=== PATIENT | female | born 1960 ===

== ENCOUNTER 2025-04-04 11:00 | Outpatient (AMB) | payer OTHER, SELFPAY ==
--- NOTE | 2025-04-04 11:14 | MHC.OFFVIS ---
Intake Visit Reasons: 6m Allergies sulfadiazine Allergy (Unknown, Verified 04/04/25 11:19) Unknown Medication List - Last Reconciled 04/04/25 by Flower Townsend CNP levothyroxine (Levoxyl) 125 mcg PO QAM omeprazole 20 mg PO DAILY rimegepant (Nurtec ODT) 75 mg PO Q OTHER DAY zolpidem 5 mg PO BEDTIME HPI Comments Details: She was doing okay. Migraines were okay with Nurtec every other day, gets about 1/week. Has more migraines during the summer, triggered by heat and humidity. Sleep was okay. She was using zolpidem about 2-3 days/week, and using melatonin or ZzzQuil other nights as needed. No medication side effects. Sleeping about 7 hours/night. Doxepin was not covered by insurance. Amitriptyline did not help and had bad dreams and more headaches with medication.? Previously, migraines were?about 2 migraines/month. Nurtec as needed helped if she took medication right away. Sometimes, she woke up with migraine and medication did not seem to help. Triggers for migraine included lack of sleep. Sleep was not so good. She had trouble falling asleep and staying asleep. Sometimes, she tries melatonin or Unisom. She tried trazodone in the past, but it did not help. Works in dermatology office. Migraine-type headaches since 2010. Has trouble falling asleep and staying asleep. Triggers include stress, hormonal fluctuations, wine, and weather changes. She is a [employer]. There is no aura. She gets nausea, photophobia, sonophobia, and smells bother her. Naratriptan helped somewhat. In the past, she tried sumatriptan and Zomig pills and nasal spray which seemed to have worked the past. She was under the care of [facility] neurology and tried Botox, Aimovig, and topiramate. In the past, she tried gabapentin, propranolol, amitriptyline, and topiramate which helped but caused hair loss. She was also on Botox which helped, but at one time she had some twitching so she did not take it after that. No family history of migraine. [facility] Medical History (Updated 04/04/25 @ 11:17 by Flower Townsend CNP) Hypothyroidism Insomnia Migraine Review of Systems Const Denies chills, Denies daytime sleepiness, Denies difficulty sleeping, Denies fatigue, Denies fever(s), Denies frequent falls, Reports headache(s), Denies increased appetite, Denies poor appetite, Denies snoring, Denies weakness, Denies weight gain and Denies weight loss Eyes Denies loss of vision ENT Denies vertigo, Denies dizziness, Reports headache(s) and Denies neck pain Card Denies chest pain at rest, Denies chest pain with activity, Denies syncope, Denies leg edema, Denies palpitations, Denies dyspnea and Denies dyspnea on exertion Resp Denies cough, Denies dyspnea, Denies dyspnea on exertion and Denies snoring GI Denies abdominal pain, Denies constipation, Denies heartburn, Denies diarrhea and Denies nausea Denies urinary frequency, Denies urinary incontinence and Denies urinary urgency Musc Denies abnormal gait, Denies back pain, Denies myalgias, Denies arthralgias, Denies neck pain, Denies numbness and Denies tingling Neuro Denies abnormal gait, Denies vertigo, Denies dizziness, Denies syncope, Denies frequent falls, Reports headache(s), Denies lack of coordination, Denies loss of vision, Denies memory loss, Denies numbness, Denies Other visual disturbances, Denies restless legs, Denies seizure-like activity, Denies tingling, Denies paresthesias, Denies tremor(s) and Denies weakness Psych Denies anxiety, Denies depression, Denies auditory hallucinations, Denies memory loss and Denies visual hallucinations Endo Denies fatigue and Denies palpitations Physical Exam Const Other: General Appearance:? normal, in no acute distress. Heart:? S1, S2 normal, no murmurs. Lungs:? clear anteriorly and posteriorly. Musculoskeletal:? normal. Extremities:? no edema. Psych:? alert, oriented, cognitive function intact, cooperative with exam. Neuro Other: Abnormal Neurological Findings:?none.? Mental Status: alert and oriented X 3. Normal attention, orientation, memory, and affect. Cranial Nerves: Pupils are equal, round, and reactive to light. External ocular muscles are intact. Visual hood are full, no ptosis. Face is symmetrical, no facial weakness or droop. Facial sensations are normal. Tongue protrudes in midline. Palate elevates symmetrically. Shoulder shrugging is normal Motor Examination: Normal muscle tone, bulk and strength. No atrophy or fasciculations. No drift of the extended upper extremities. DTR 2+. Plantars are flexor. Sensory Exam: Normal light touch, temperature, pinprick, vibration, and joint-position sensations. Rhomberg sign is absent. Coordination: No ataxia. No titubation. Gait Exam: Within normal limits. Cerebellar Signs: Vyptie-[id number] is okay. Extrapyramidal System: No tremor, rigidity with normal facial expressions. No bradykinesia. No bradyphrenia. Normal arm swing and posture. No propulsion or retropulsion. Speech: Normal. Assessment & Plan Assessment & Plan (1) Chronic migraine w/o aura w/o status migrainosus, not intractable: Code(s): G43.709 - Chronic migraine without aura, not intractable, without status migrainosus Category: Medical Plan: Continue Nurtec 75mg 1 tablet every other day #15 for 30 days. (2) Insomnia: Code(s): G47.00 - Insomnia, unspecified Category: Medical Qualifiers: Insomnia type: unspecified Qualified Code(s): G47.00 - Insomnia, unspecified Plan: Continue zolpidem 5mg 1 tablet at bedtime as needed for sleep #30 for 30 days. Plan Meds tried for sleep: amitriptyline, trazodone Meds tried for migraine: naratriptan, sumatriptan, Zomig (pills and nasal spray), gabapentin, propranolol, amitriptyline, topiramate (helped, but caused hair loss), Aimovig, Botox Medications: New zolpidem 5 mg PO BEDTIME 30 tabs 3RF 30 days Coding Level of Care Code Est Pt Level 4 (93454) Diagnoses Chronic migraine w/o aura w/o status migrainosus, not intractable G43.709 Insomnia, unspecified type G47.00 Insomnia type: unspecified
--- OUTSIDE RECORDS SUMMARY | 2025-04-04 16:52 | XMS_ITS | Patient Health Record ---
Author Organization [facility] Address [address] [address] Care Team Providers Care Supervisor [employer] Name Role Phone EVANGELISTA MAGANA Primary Care Provider EMILEE Butler Unavailable [phone] Allergies Allergen (clinical drug ingredient) Drug/Non Drug Allergy documented on EMR Reaction Allergy Type Onset Date Status Levaquin nausea Drug Allergy Active sulfa rash Drug Allergy Active Reason For Referral No Information Medications Medication SIG (Take, Route, Frequency, Duration) Notes Start Date End Date Status Magnesium Oxide 400 MG 1 tablet Orally B ID; Duration: 30 day(s) Active Zofran 4 MG 1 tablets Orally q4h our prn nausea; Duration: 30 day(s) Active Promethazine HCl 12.5 MG 1 tablet daily Orally As needed; Duration: 30 days Active Eletriptan Hydrobromide 20 MG 1 tablet as needed one time at onset of migraine, may repeat x 1; limit to 2/wk Orally Once a day; Duration: 30 days Active Naratriptan HCl 2.5 MG TAKE 1 TABLET BY MOUTH NEEDED ONCE A DAY DIRECTED (LIMIT TO 2 TABS/WEEK); Duration: 30 Active lamoTRIgine 25 MG 1 tablet Orally BID; Duration: 30 Active Estradiol 0.05 MG/24HR Transdermal Active Zembrace SymTouch 3 MG/0.5ML 0.5 ml as needed one time Subcutaneous Once a day as needed for severe migraine; Duration: 30 days Active Levoxyl 150 MCG 1 tablet Orally Active Promethazine HCl 12.5 MG TAKE 1 TABLET B Y MOUTH DAILY NEEDED; Duration: 30 Active Botox 200 UNIT inject 155 units div ided into 31 sites around the head and neck IM every 12 weeks; Duration: 90 days 08/19/2015 Active Problems Problem Type SNOMED Code ICD Code Onset Dates Problem Status W/U Status Risk Notes Problem Headache (26993983) Headache (784.0) Active confirmed Problem Hypothyroidism (44967857) Hypothyroidism, unspecified (E03.9) Active confirmed Problem Major depression, single episode (60883408) Major depressive disorder, single episode, unspecified (F32.9) Active confirmed Problem Chronic intractable migraine without aura (119752686359327) Chronic migraine without aura, intractable, without status migrainosus (G43.719) Active confirmed Problem Nausea (186929382) Nausea (R11.0) Active confirmed Problem Depression (259326132) Depression (F32.9) Active confirmed Problem Dizziness (050675532) Dizziness (R42) Active confirmed Problem Restless legs syndrome (34583483) Restless leg syndrome (G25.81) Active confirmed Problem Abnormal gait (72851695) Imbalance (R26.89) Active confirmed Problem Hypothyroidism (98598530) Hypothyroidism (E03.9) Active confirmed Problem Malaise (312196389) Malaise (R53.81) Active confirmed Plan Of Treatment Pending Test Test Name Order Date LIPID PANEL WITH REFLEX TO DIRECT LDL COMPREHENSIVE METABOLIC PANEL 03/14/2018 LYME DISEASE AB W/REFL TO BLOT (IGG, IGM ) 03/14/2018 HEMOGLOBIN A1c 03/14/2018 TSH W/REFLEX TO FT4 03/14/2018 LAMOTRIGINE 03/14/2018 Insurance Providers Payer Name Payer Address Payer Phone Subscriber Number Group Number Insured Name Patient Relationship to Insured Coverage Start Date Coverage End Date [facility] [address] [place] [address] [id number] OZZIE CLINTON Self - patient is the insured Medications Administered Medication Instructions Date of Administration Dosage Notes Botox 09/18/2015 155 units INFORMED CONSENT: The rationale, risks, benefits, and alternatives of Botox injection for headaches were reviewed with the patient. All questions answered, consent was given, and she decided to proceed with the injections. PROCEDURAL PAUSE: Prior to starting the procedure, all pertinent records were reviewed, the nature of the procedure was explained, and a pre-procedure pause was performed. Procedural pause conducted to verify: correct patient identity, procedure to be performed, correct patient position, special requirements, and as applicable, correct side and site. PROCEDURE DETAILS: Botulinum toxin injection 155 units of botulinum toxin type A were injected into the following muscles: 1. 5.0 units into each emblem maker muscle and into the procerus muscle (15 units total). 2. 10 units into the right and left superior frontalis muscle (20 units total). 3. 20 units into the right and left temporalis muscle (40 units total). 4. 15 units into the right and left occipitalis muscle (30 units total). 5. 10 units into the right and left splenius capitis muscle (20 units total). 6. 15 units into the right and left trapezius muscle (30 units total). 45 units were wasted. The patient tolerated the procedure well. Botox 12/11/2015 155 units INFORMED CONSENT: The rationale, risks, benefits, and alternatives of Botox injection for headaches were reviewed with the patient. All questions answered, consent was given, and she decided to proceed with the injections. PROCEDURAL PAUSE: Prior to starting the procedure, all pertinent records were reviewed, the nature of the procedure was explained, and a pre-procedure pause was performed. Procedural pause conducted to verify: correct patient identity, procedure to be performed, correct patient position, special requirements, and as applicable, correct side and site. PROCEDURE DETAILS: Botulinum toxin injection 155 units of botulinum toxin type A were injected into the following muscles: 1. 5.0 units into each emblem maker muscle and into the procerus muscle (15 units total). 2. 10 units into the right and left superior frontalis muscle (20 units total). 3. 20 units into the right and left temporalis muscle (40 units total). 4. 15 units into the right and left occipitalis muscle (30 units total). 5. 10 units into the right and left splenius capitis muscle (20 units total). 6. 15 units into the right and left trapezius muscle (30 units total). 45 units were wasted. The patient tolerated the procedure well. [id number] may 2018 Botox 03/04/2016 155 units INFORMED CONSENT: The rationale, risks, benefits, and alternatives of Botox injection for headaches were reviewed with the patient. All questions answered, consent was given, and she decided to proceed with the injections. PROCEDURAL PAUSE: Prior to starting the procedure, all pertinent records were reviewed, the nature of the procedure was explained, and a pre-procedure pause was performed. Procedural pause conducted to verify: correct patient identity, procedure to be performed, correct patient position, special requirements, and as applicable, correct side and site. PROCEDURE DETAILS: Botulinum toxin injection 155 units of botulinum toxin type A were injected into the following muscles: 1. 5.0 units into each emblem maker muscle and into the procerus muscle (15 units total). 2. 10 units into the right and left superior frontalis muscle (20 units total). 3. 20 units into the right and left temporalis muscle (40 units total). 4. 15 units into the right and left occipitalis muscle (30 units total). 5. 10 units into the right and left splenius capitis muscle (20 units total). 6. 15 units into the right and left trapezius muscle (30 units total). 45 units were wasted. The patient tolerated the procedure well. [id number] Aug 2018 Botox 05/27/2016 155 units INFORMED CONSENT: The rationale, risks, benefits, and alternatives of Botox injection for headaches were reviewed with the patient. All questions answered, consent was given, and she decided to proceed with the injections. PROCEDURAL PAUSE: Prior to starting the procedure, all pertinent records were reviewed, the nature of the procedure was explained, and a pre-procedure pause was performed. Procedural pause conducted to verify: correct patient identity, procedure to be performed, correct patient position, special requirements, and as applicable, correct side and site. PROCEDURE DETAILS: Botulinum toxin injection 155 units of botulinum toxin type A were injected into the following muscles: 1. 5.0 units into each emblem maker muscle and into the procerus muscle (15 units total). 2. 10 units into the right and left superior frontalis muscle (20 units total). 3. 20 units into the right and left temporalis muscle (40 units total). 4. 15 units into the right and left occipitalis muscle (30 units total). 5. 10 units into the right and left splenius capitis muscle (20 units total). 6. 15 units into the right and left trapezius muscle (30 units total). 45 units were wasted. The patient tolerated the procedure well. [id number] Dec 2018 Botox 08/26/2016 155 units PROCEDURAL PAUSE: Prior to starting the procedure, all pertinent records were reviewed, the nature of the procedure was explained, and a pre-procedure pause was performed. Procedural pause conducted to verify: correct patient identity, procedure to be performed, correct patient position, special requirements, and as applicable, correct side and site. PROCEDURE DETAILS: Botulinum toxin injection 155 units of botulinum toxin type A were injected into the following muscles: 1. 5.0 units into each emblem maker muscle and into the procerus muscle (15 units total). 2. 10 units into the right and left superior frontalis muscle (20 units total). 3. 20 units into the right and left temporalis muscle (40 units total). 4. 15 units into the right and left occipitalis muscle (30 units total). 5. 10 units into the right and left splenius capitis muscle (20 units total). 6. 15 units into the right and left trapezius muscle (30 units total). 45 units were wasted. The patient tolerated the procedure well. [id number] Feb 2019 Botox 11/25/2016 155 units PROCEDURE DETAILS: Botulinum toxin injection 155 units of botulinum toxin type A were injected into the following muscles: 1. 5.0 units into each emblem maker muscle and into the procerus muscle (15 units total). 2. 10 units into the right and left superior frontalis muscle (20 units total). 3. 20 units into the right and left temporalis muscle (40 units total). 4. 15 units into the right and left occipitalis muscle (30 units total). 5. 10 units into the right and left splenius capitis muscle (20 units total). 6. 15 units into the right and left trapezius muscle (30 units total). 45 units were wasted. The patient tolerated the procedure well. [id number] may 2019 Medical (General) History Medical History History ICD Code Hypothyroidism, unspecified Headache Major depressive disorder, single episod e, unspecified Surgical History Surgery Date(Month/Year) Tonsilectomy 1991 Tubal ligation 1994 Hyst partial 1999 s/p thyroid nodule bx Hospitalization History Reason Date(Month/Year) surgical related
--- OUTSIDE RECORDS SUMMARY | 2025-04-04 16:53 | XMS_ITS | Clinical Summary ---
Author Organization [facility] Address [address] [address] Phone Care Team Providers Care Consumer Affairs Director Name Role Phone Mauri Alva MD Primary Care Provider Allergies Active Allergy Reactions Criticality Noted Date Comments Levofloxacin 11/02/2022 rash Sulfa (Sulfonamide Antibiotics) 10/15 Medications LEVOXYL 150 mcg tablet TAKE ONE TABLET BY MOUTH EVERY DAY SIX DAYS A WEEK AND TAKE 1 AND 1/2 TABLET ON SEVENTH DAY 09/21/2022 Active NURTEC ODT 75 mg tablet TAKE 1 TABLET ON THE TONGUE AND ALLOW TO DISSOLVE ORALLY EVERY OTHER DAY 10/06/2022 Active Social History Tobacco Use Types Packs/Day Years Used Date Smoking Tobacco: Never Smokeless Tobacco: Never Alcohol Use Standard Drinks/Week Comments Yes 0 (1 standard drink = 0.6 oz pur e alcohol) 2-3 weekly Education Answer Date Recorded Are you interested in more education? Not on akira e 09/11/2022 Are you concerned about learning? Not on file 09/11/2022 No 09/11/2022 No 09/11/2022 Digital Access Answer Date Recorded No 10/12/2022 No 10/12/2022 Reliable internet access at home? Not on file 10/12/2022 Device with a working camera? Not on file Intimate Partner Violence Answer Date R ecorded Denied Basic Needs Not on file 11/03/2022 In the past 12 months have y ou been in a relationship with a person who hurts, threatens, or tries to control you? No 11/03/2022 Worried food would run out Not on file 11/03 In the past 12 months have y ou been in a relationship with a person who hurts, threatens, or tries to control you? No 11/03/2022 Comments No Sex and Gender Information Value Date Recorded Sex Assigned at Not on file Legal Sex Female 11:52 AM EST Gender Identity Not on file Sexual Orientation Not on file Last Filed Vital Signs Vital Sign Reading Time Taken Comments Blood Pressure 122/73 11/03/2022 12:41 PM EDT Pulse 67 11/03/2022 12:41 PM EDT Temperature 36 C (96.8 F) 11/03/2022 12:26 PM EDT Respiratory Rate 16 11/03/2022 12:45 PM EDT Oxygen Saturation 97% 11/03/2022 12:41 PM EDT Inhaled Oxygen Concentration - - Weight 72.1 kg (159 lb) 11/02/2022 2:21 PM EDT Height 162.6 cm (5' 4 ) 11/02/2022 2:21 PM EDT Body Mass Index 27.29 11/02/2022 2:21 PM EDT Plan of Treatment Health Maintenance Due Date Last Done Comments Adult Td,Tdap Booster 1960 LIPID PANEL 1960 TSH LEVEL 1960 DEPRESSION SCREENING 1974 HEPATITIS C SCREENING 01/17/1980 HIV ONE-TIME SCREENING (18-6 5 YEARS) 01/17/1980 PAP SMEAR 1983 SCREENING FOR DIABETES 1997 MAMMOGRAM 2002 COLOGUARD 2007 FIT TEST 2007 FOBT 2007 SIGMOIDOSCOPY 2007 VIRTUAL COLONOSCOPY 2007 PNEUMOCOCCAL VACCINES (50+ years) (1 of 1 - PCV) 01/17/2012 ZOSTER VACCINES (1 of 2) 01/17/2012 INFLUENZA VACCINE (#1) 2024 COVID-19 VACCINE (4 - 2024-2 6 season) 2025 05/14/2021, 07/04/2020, 06/06/2020 COLONOSCOPY 11/03/2032 11/03/2022 COLORECTAL CANCER SCREENING 11/03/2032 RSV VACCINE (1 - 1-dose 75+ series) 2037 SMOKING STATUS SCREENING (On ce After 26 Yrs) Completed 11/03/2022 HEPATITIS A VACCINES Aged Out No long er eligible based on patient's age to complete this topic HIB VACCINES Aged Out No longer eligi ble based on patient's age to complete this topic MENINGOCOCCAL VACCINES (ACWY) Aged Out No longer eligible based on patient's age to complete this topic MENINGOCOCCAL VACCINES (B) Aged Out N o longer eligible based on patient's age to complete this topic Medical Devices Not on file Procedures Procedure Name Priority Date/Time Associated Diagnosis Comments ENDOSCOPY, COLON 11/03/2022 12:0 4 PM EDT from Last 3 Months or Most Recently Relevant to Health Maintenance Results * ENDOSCOPY, COLON (11/03/2022 12:04 PM EDT) Narrative Transcriptions Catia Nunn MD - 11/03/2022 12:04 PM EDT [facility] Patient Name: Joan Moreno Attending MD:: CATIA NUNN MD, Procedure Date: 11/03/2022 12:04 PM Date of : 1960 Age: 62 Admit Type: Outpatient Gender: Female Room: [place] [address] Referring MD: Mauri Alva MD Exam Type: Colonoscopy Indications: Screening for colorectal malignant neoplasm, Last colonoscopy 10 years ago Medications: Monitored Anesthesia Care Procedure: Informed consent was obtained from the patientafter discussion of the indications, limitations, alternatives, benefits, and risks of the procedure. Risks specifically discussed include but are not limited to medication reactions, missed lesions, bleeding, perforation, or the need for emergent surgery. Throughout the procedure, the patient's blood pressure, pulse, end-tidal CO2, and oxygensaturations were monitored continuously. The Olympus pediatric variable colonoscopePCF-[id number] #2 was introduced through the anus and advanced tothe terminal ileum, with identification of theappendiceal orifice and IC valve. The colonoscopy was performed without difficulty. The patient tolerated the procedure fairly well. The quality of the bowel preparation was good. The terminal ileum, ileocecal valve, appendiceal orifice, and rectum were photographed. Complications: No immediate complications. Estimated blood loss:None. Findings: The perianal and digital rectal examinations were normal. Pertinent negatives include normalsphincter tone. Retroflexion in the right colon was performed. The terminal ileum appeared normal. Non-bleeding internal hemorrhoids were found during retroflexion. The hemorrhoids were moderate. The exam was otherwise without abnormality ondirect and retroflexion views. Impression: - The examined portion of the ileum was normal. - Non-bleeding internal hemorrhoids. - The examination was otherwise normal on directand retroflexion views. - No specimens collected. Recommendation: - Repeat colonoscopy in 10 years for screening purposes. - Continue present medications. - Patient has a contact number available for emergencies. The signs and symptoms of potential delayed complications were discussed with thepatient. Return to normal activities tomorrow. Written discharge instructions were provided to thepatient. CATIA NUNN MD 11/03/2022 12:26:06 PM This report has been signed electronically. Number of Addenda: 0 Note Initiated On: 11/03/2022 12:04 PM Procedure Code(s): --- Professional --- 10557, Colonoscopy, flexible; diagnostic, including collection of specimen(s) by brushing or washing, when performed (separateprocedure) --- Technical --- 79967, Colonoscopy, flexible; diagnostic, including collection of specimen(s) by brushing or washing, when performed (separateprocedure) Diagnosis Code(s): --- Professional --- Z12.11, Encounter for screening for malignantneoplasm of colon K64.8, Other hemorrhoids --- Technical --- Z12.11, Encounter for screening for malignantneoplasm of colon K64.8, Other hemorrhoids CPT copyright 2021 [employer]. All rights reserved. The codes documented in this report are preliminary and upon store host reviewmay be revised to meet current compliance requirements. Procedure Date: 11/03/2022 12:04:40 PM [address] [place] [address] Mauri Alva MD GI PROCEDURE ORDERABLES Final Result from Last 3 Months or Most Recently Relevant to Health Maintenance Insurance [facility] Care Teams Consumer Affairs Director Relationship Specialty Start Date End Date Mauri Alva MD [address] [place] [id number] PCP - General Internal Medicine 11/03/22 Additional Source Comments The information contained in this document represents components of the legal health record. It is not the complete legal health record.[facility]
--- OUTSIDE RECORDS SUMMARY | 2025-04-04 16:54 | XMS_ITS | Patient Health Record ---
[facility] Address [address] [place] [address] Care Team Providers Care Training And Documentation Specialist Name Role Phone Mauri Smalls MD Primary Care Provider Unavailab ashley SrivastavaElsie Unavailable [phone] Allergies Allergen (clinical drug ingredient) Drug/Non Drug Allergy documented on EMR Reaction Allergy Type Onset Date Status sulfa rash Drug Allergy Active levaquin nausea and vomiting Drug Allergy Active Reason For Referral No Information Medications Medication SIG (Take, Route, Fr equency, Duration) Notes Start Date End Date Status Work Note . . . .; Duration: . 09/21/2011 Active Levoxyl .02 MG 1 tablet every morni ng on an empty stomach Orally Once a day; Duration: 30 day(s) Active Topamax 25 MG 1 tablet at bedtime Orally Once a day; Duration: 30 day(s) Active Zomig Active Problems Problem Type SNOMED Code ICD Code Onset Dates Problem Status W/U Status Risk Notes Problem Hallux valgus (673096488) Hallux Valgus (735.0) Active confirmed Problem Hammer toe (503395020) Hammer toe (735.4) Active confirmed Problem Metatarsalgia (32837722) Metatarsalgia (726.70) Active confirmed Problem Pain in limb (55041332) Pain in Limb (729.5) Active confirmed Plan Of Treatment Pending Test Test Name Order Date X ray : Foot, left 3V 09/21/2011 X ray : Foot, right 3V 09/21/2011 Insurance Providers Payer Name Payer Address Payer Phone Subscriber Number Group Number Insured Name Patient Relationship to Insured Coverage Start Date Coverage End Date [facility] [address] [place] [id number] Joan Moreno Self - patient is the insured Medical (General) History Medical History History ICD Code headaches/migraines thyroid disorder chicken pox Surgical History Surgery Date(Month/Year) cyst removal 2002 hernia 2006
--- OUTSIDE RECORDS SUMMARY | 2025-04-04 16:55 | XMS_ITS | Clinical Summary ---
Author Organization [facility] Address [address] [place] [address] Phone Care Team Providers Care Unit Control Worker Name Role Phone Mauri Paris MD Primary Care Provider [phone] Encounters Date Type Department Care Team Description 03/21/2025 9:54 AM EST - 03/21/2025 11:59 PM EST Hospital [facility]counter [facility] [address] [address] Visit for screening mammogram Discharge Disposition: Home or Self Care from Last 3 Months Surgical History Surgery Date Site/Laterality Comments STEREOTACTIC CORE BIOPSY HYSTERECTOMY Social History Tobacco Use Types Packs/Day Years Used Date Smoking Tobacco: Never Assessed Comments No Sex and Gender Information Value Date Recorded Sex Assigned at Not on file Legal Sex Female 1:54 AM EST Gender Identity Not on file Sexual Orientation Not on file Obstetrics History Para Term AB IAB SAB Ectopic Multiple Livin g Live Births 3 Last Filed Vital Signs Vital Sign Reading Time Taken Comments Blood Pressure - - Pulse - - Temperature - - Respiratory Rate - - Oxygen Saturation - - Inhaled Oxygen Concentration - - Weight 71.7 kg (158 lb) 03/21/2025 10:03 AM EST Height 162.6 cm (5' 4 ) 03/21/2025 10:03 AM EST Body Mass Index 27.12 03/21/2025 10:03 AM EST Plan of Treatment Upcoming Encounters Date Type Department Care Team (Late st Contact Info) Description 05/23/2025 10:00 AM EST Appointment [facility] Bone Density [address] [place] [address] Health Maintenance Due Date Last Done Comments Colorectal Cancer Screening: Colonoscopy 1962 DTaP,Tdap,and Td Vaccines (1 - Tdap) 1981 Cervical Cancer Screening: Pap Smear 1983 Pneumococcal Vaccine: 50+ Years (1 of 1 - PCV) 01/17/2012 Zoster Vaccines (1 of 2) 01/17/2012 HIV Screening 04/18/2022 Hepatitis C Screening 04/18/2022 Social Influencers of Health Screening 04/18/2022 Depression Screening 05/16/2024 COVID-19 Vaccine ( season) 2025 05/14/2021, 07/04/2020, 06/06/2020 Influenza Vaccine (#1) 2025 Breast Cancer Screening 03/21/2027 03/21/20, 12/01/2023, 10/13/2022, Additional history exists RSV Immunization Adult Patients (1 - 1-dose 75+ series) 2037 HIB Vaccines Aged Out No longer eligi ble based on patient's age to complete this topic HPV Vaccines Aged Out No longer eligi ble based on patient's age to complete this topic Hepatitis A Vaccines Aged Out No long er eligible based on patient's age to complete this topic Hepatitis B Vaccines Aged Out No long er eligible based on patient's age to complete this topic IPV Vaccines Aged Out No longer eligi ble based on patient's age to complete this topic MMR Vaccines Aged Out No longer eligi ble based on patient's age to complete this topic Meningococcal ACWY Vaccine Aged Out N o longer eligible based on patient's age to complete this topic Meningococcal B Vaccine Aged Out No l onger eligible based on patient's age to complete this topic RSV Immunization Patients Under 20 months Aged Out No longer eligible based on patient's age to complete this topic Varicella Vaccines Aged Out No longer eligible based on patient's age to complete this topic Procedures Procedure Name Priority Date/Time Associated Diagnosis Comments MG MAMMO DIGITAL SCREENING W AR BILAT Routine 03/21/2025 10:11 AM EST Visit for screening mammogram from Last 3 Months Results * MG Mammo Digital Screening w Ar bilat (03/21/2025 10:11 AM EST) Anatomical Region Laterality Modality Breast Bilateral Mammography 03/21/2025 10:2 7 AM EST Impressions 03/21/2025 11:33 AM EST Benign. BI-RADS CATEGORY: 1 - NEGATIVE RECOMMENDATION: Screening bilateral mammogram is recommended in 1 year. Mammo Location: [facility], [address] [place] [address], [id number], . -------- FINAL REPORT -------- Dictated By: Samir Lara Dictated Date: 03/21/2025 10:27 ET Assigned Physician: Samir Lara Reviewed and Electronically Signed By: Samir Lara Signed Date: 03/21/2025 11:33 ET Workstation ID: [id number] Transcribed By: Self Edit Transcribed Date: 03/21/2025 10:28 ET Narrative 03/21/2025 11:33 AM EST CLINICAL: 65 years old, Female, routine annual exam. COMPARISON: 12/01/2023 and 10/13/2022 TECHNIQUE: Bilateral MLO and CC views were obtained digitally with 3-D mammogram (digital breast tomosynthesis). Computer-aided detection was utilized in evaluation of this exam (CAD). FINDINGS: No suspicious mass or architectural distortion. No suspicious calcification. There has been no significant change from prior exam(s). BREAST DENSITY: C - The breasts are heterogeneously dense which may obscure small masses. Procedure Note Samir Lara MD - 03/21/2025 CLINICAL: 65 years old, Female, routine annual exam. COMPARISON: 12/01/2023 and 10/13/2022 TECHNIQUE: Bilateral MLO and CC views were obtained digitally with 3-Dmammogram (digital breast tomosynthesis). Computer-aided detection wasutilized in evaluation of this exam (CAD). FINDINGS: No suspicious mass or architectural distortion. No suspiciouscalcification. There has been no significant change from prior exam(s). BREAST DENSITY: C - The breasts are heterogeneously dense which mayobscure small masses. IMPRESSION: Benign. BI-RADS CATEGORY: 1 - NEGATIVE RECOMMENDATION: Screening bilateral mammogram is recommended in 1 year. Mammo Location: [facility], [address] [place], [place], [address], . -------- FINAL REPORT -------- Dictated By: Samir Lara Dictated Date: 03/21/2025 10:27 ET Assigned Physician: Samir Lara Reviewed and Electronically Signed By: Samir Lara Signed Date: 03/21/2025 11:33 ET Workstation ID: [id number] Transcribed By: Self Edit Transcribed Date: 03/21/2025 10:28 ET Diana VEGA IMG BI PROCEDURES Final Res ult from Last 3 Months Insurance [facility] Care Teams Unit Control Worker Relationship Specialty Start Date End Date Mauri Paris MD [address] [place] [id number] PCP - General Internal Medicine 03/21/25
--- OUTSIDE RECORDS SUMMARY | 2025-04-04 16:55 | XMS_ITS | Encounter Summary ---
Author Organization [facility] Address [address] [facility] [address] [place] [phone] Phone Care Team Providers Care Framing Manager Name Role Phone Mauri Alva MD Primary Care Provider Encounter Details Date Type Department Care Team (Late st Contact Info) Description 11/03/2022 Procedure Pass [facility] Endoscopy Admitting Dept Virtual Department [address] [place] [address] Social History Tobacco Use Types Packs/Day Years [...] on file Sexual Orientation Not on file documented as of this encounter Plan of Treatment Not on file documented as of this encounter Visit Diagnoses Not on filedocumented in this encounter Care Teams Framing Manager Relationship Specialty Start Date End Date Mauri Alva MD [address] [place] [address] PCP - General Internal Medicine 11/03/22 documented as of this encounter Additional Source Comments The information contained in this document represents components of the legal health record. It is not the complete legal health record.[facility]
== END 2025-04-04 11:25 | disposition home or self-care (01) ==
PROVIDERS: Visit Provider Registered Nurse
DX: G43.709 Chronic migraine without aura, not intractable, without status migrainosus (principal); G47.00 Insomnia, unspecified
CPT/HCPCS: 99214